=== PATIENT | female | born 1970 | race Caucasian/White ===

== ENCOUNTER → 2019-10-27 | Outpatient (CLI) | payer OTHER ==
--- NOTE | 2019-10-27 14:17 | RADIOLOGY REPORT (SQ) ---
EXAM DESCRIPTION: SMALL BOWEL SERIES IMAGES COMPLETED DATE/TIME: 10/27/2019 1:27 pm REASON FOR STUDY: IRON DEFICIENCY (E61.1) E61.1 IRON DEFICIENCY COMPARISON: 10/26/2019 FLUOROSCOPY TIME: 17 seconds of fluoroscopy was used. 3 images saved to PACS. LIMITATIONS: None. PROCEDURE: Initial legal file clerk image of abdomen acquired, followed by administration of oral contrast. Se rial radiographic images acquired. Fluoroscopic images recorded of the terminal ileum and other halle cated areas. All images stored on PACS. 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 No abnormal calcifications. Soft tissue planes normal. Moderate fecal material in the right colon. STOMACH: No significant reflux. Normal distention without abnormality. DUODENUM: Normal mucosal pattern with adequate distention. No displacement or obstruction. JEJUNUM: Normal mucosal pattern. No dilatation, segmentation, strictures or masses. ILEUM: Normal mucosal pattern. No dilatation, segmentation, strictures or masses. TERMINAL ILEUM AND ILEO-CECAL VALVE: Normal mucosal pattern without "cobble-stoning" or stricture. N ormal compression. PROXIMAL COLON: Incompletely imaged. No abnormality. OTHER: No other significant finding. IMPRESSION: NORMAL SMALL BOWEL EXAM. COMMENT: Quality ID [id number]: Final reports for procedures using fluoroscopy that document radiation exp osure indices, or exposure time and number of fluorographic images (if radiation exposure indices are not available) TECHNICAL DOCUMENTATION: JOB ID: [id number] 2010 [employer]- All Rights Reserved Reading location - IP/workstation name: [email or web address] [id number]
== END ==
LOC: RAD 09:31
PROVIDERS: ATTEND Internal Medicine Gastroenterology
DX: E61.1 Iron deficiency (principal)
CPT/HCPCS: 74250